=== PATIENT | male | born 1990 | race Caucasian/White ===

== ENCOUNTER 2020-02-19 00:34 | Emergency (ER) | payer BC ==
[2020-02-19] MEDS ORDERED: Alum Hydrox/Mag Hydrox/Simeth 30 ML, Lidocaine 2% 15 ML PO ONE ×2 (02:14)
--- NOTE | 2020-02-19 03:28 | EDM.PDOC ---
ED HPI GENERAL MEDICAL PROBLEM - General Chief Complaint: Abdominal Pain Stated Complaint: ABDOMINAL PAIN Time Seen by Provider: 02/19/20 00:36 Source of Information: Reports: Patient History Limitations: Reports: No Limitations - History of Present Illness INITIAL COMMENTS - FREE TEXT/NARRATIVE: TRIAGE NOTE -- PT STARTED having mid abdominal pain about 4 hours [employer] and radiated to his right mid back, denies vomiting and nausea. pt further stated he has umbilical hernia. [ End ] The patient is complaining of the epigastric pain. He says it started perhaps 4 hours prior to arrival. He says the pain then went to the upper abdomen on the right and then radiated to his back. He is a cigarette smoker. No other identified risk factors. There is no pain referable to the umbilical area. No fever respiratory symptoms or any other symptom of acute medical illness otherwise. Middle Abdomen Pain Score (Numeric/FACES): 3 - Related Data Allergies Allergy/AdvReac Type Severity Reaction Status Date / Time No Known Allergies Allergy Verified 02/19/20 00:46 Home Meds: Home Meds Multivitamin [Multi-Vitamin Daily] 1 tab PO DAILY 02/19/20 [History] Past Medical History - Past Health History Medical/Surgical History: Denies Medical/Surgical History - Past Surgical History GI Surgical History: Reports: Hernia, Abdominal Social & Family History - Family History Family Medical History: Noncontributory - Tobacco Use Smoking Status *Q: Current Every Day Smoker Years of Tobacco use: 10 Packs/Tins Daily: 0.5 Used Tobacco, but Quit: No - Caffeine Use Caffeine Use: Reports: Coffee, Tea - Recreational Drug Use Recreational Drug Use: No ED ROS GENERAL - Review of Systems Review Of Systems: Comprehensive ROS is negative, except as noted in HPI. ED EXAM, GI/ABD - Physical Exam Exam: See Below Exam Limited By: No Limitations General Appearance: Alert, WD/WN, No Apparent Distress Eyes: Bilateral: Abnormal EOM Ears: Normal External Exam Nose: Normal Inspection Throat/Mouth: Normal Inspection Head: Atraumatic, Normocephalic Neck: Supple, Non-Tender Respiratory/Chest: No Respiratory Distress, Lungs Clear, Normal Breath Sounds Cardiovascular: Regular Rate, Rhythm GI/Abdominal Exam: Soft, Tender (Very mild tenderness in epigastric and right upper quadrant.). No: Guarding, Rigid, Rebound Back Exam: Normal Inspection Extremities: Normal Inspection, Non-Tender Neurological: Alert, Oriented, Normal Cognition, No Motor/Sensory Deficits Psychiatric: Normal Affect Skin Exam: Warm, Dry Course - Vital Signs Last Recorded V/S: Last Vital Signs Temp 36.8 C 02/19/20 00:42 Pulse 65 02/19/20 00:42 Resp 20 02/19/20 00:42 BP 168/96 H 02/19/20 00:42 Pulse Ox 100 02/19/20 00:42 - Orders/Labs/Meds Labs: Laboratory Tests 02/19/20 02/19/20 02/19/20 Range/Units 01:15 01:15 02:05 WBC 6.44 (4.23-9.07) K/mm3 RBC 4.68 (4.63-6.08) M/mm3 Hgb 14.3 (13.7-17.5) gm/dl Hct 41.5 (40.1-51.0) % MCV 88.7 (79.0-92.2) fl MCH 30.6 (25.7-32.2) pg MCHC 34.5 (32.2-35.5) g/dl RDW Std Deviation 43.1 (35.1-43.9) fL Plt Count 295 (163-337) K/mm3 MPV 9.7 (9.4-12.3) fl Neutrophils % (Manual) 40 (40-60) % Band Neutrophils % 0 (0-10) % Lymphocytes % (Manual) 37 (20-40) % Atypical Lymphs % 0 % Monocytes % (Manual) 17 H (2-10) % Eosinophils % (Manual) 4 (0.8-7.0) % Basophils % (Manual) 2 H (0.2-1.2) Platelet Estimate Adequate Plt Morphology Comment Normal RBC Morph Comment Normal Sodium 138 (136-145) mEq/L Potassium 4.0 (3.5-5.1) mEq/L Chloride 101 (98-107) mEq/L Carbon Dioxide 29 (21-32) mEq/L Anion Gap 12.0 (5-15) BUN 16 (7-18) mg/dL Creatinine 1.2 (0.7-1.3) mg/dL Est Cr Clr Drug Dosing 104.15 mL/min Estimated GFR (MDRD) > 60 (>60) mL/min BUN/Creatinine Ratio 13.3 L (14-18) Glucose 97 (74-106) mg/dL Calcium 9.0 (8.5-10.1) mg/dL Total Bilirubin 0.6 (0.2-1.0) mg/dL AST 36 (15-37) U/L ALT 66 H (16-63) U/L Alkaline Phosphatase 79 (46-116) U/L Total Protein 7.0 (6.4-8.2) g/dl Albumin 3.9 (3.4-5.0) g/dl Globulin 3.1 gm/dL Albumin/Globulin Ratio 1.3 (1-2) Lipase 115 (73-393) U/L Urine Color Yellow (Yellow) Urine Appearance Clear (Clear) Urine pH 6.5 (5.0-8.0) Ur Specific [place] 1.025 (1.005-1.030) Urine Protein Negative (Negative) Urine Glucose (UA) Negative (Negative) Urine Ketones Negative (Negative) Urine Occult Blood Negative (Negative) Urine Nitrite Negative (Negative) Urine Bilirubin Negative (Negative) Urine Urobilinogen 0.2 (0.2-1.0) Ur Leukocyte Esterase Negative (Negative) Urine Opiates Screen (WPTEQP=257) Ur Buprenorphine Scrn (CUTOFF=10) Ur Oxycodone Screen (HHL7IK=091) Urine Methadone Screen (SWZ2LC=168) Ur Propoxyphene Screen (NRMHAJ=043) Ur Barbiturates Screen (OTUHFE=846) Ur Tricyclics Screen (DMDNDA=342) Ur Phencyclidine Scrn (CUTOFF=25) Ur Amphetamine Screen (OFZJQC=132) U Methamphetamines Scrn (DCRJMI=739) U Benzodiazepines Scrn (TIUHOZ=759) U Cocaine Metab Screen (RTJHAY=093) U Marijuana (THC) Screen (CUTOFF=50) 02/19/20 Range/Units 02:12 WBC (4.23-9.07) K/mm3 RBC (4.63-6.08) M/mm3 Hgb (13.7-17.5) gm/dl Hct (40.1-51.0) % MCV (79.0-92.2) fl MCH (25.7-32.2) pg MCHC (32.2-35.5) g/dl RDW Std Deviation (35.1-43.9) fL Plt Count (163-337) K/mm3 MPV (9.4-12.3) fl Neutrophils % (Manual) (40-60) % Band Neutrophils % (0-10) % Lymphocytes % (Manual) (20-40) % Atypical Lymphs % % Monocytes % (Manual) (2-10) % Eosinophils % (Manual) (0.8-7.0) % Basophils % (Manual) (0.2-1.2) Platelet Estimate Plt Morphology Comment RBC Morph Comment Sodium (136-145) mEq/L Potassium (3.5-5.1) mEq/L Chloride (98-107) mEq/L Carbon Dioxide (21-32) mEq/L Anion Gap (5-15) BUN (7-18) mg/dL Creatinine (0.7-1.3) mg/dL Est Cr Clr Drug Dosing mL/min Estimated GFR (MDRD) (>60) mL/min BUN/Creatinine Ratio (14-18) Glucose (74-106) mg/dL Calcium (8.5-10.1) mg/dL Total Bilirubin (0.2-1.0) mg/dL AST (15-37) U/L ALT (16-63) U/L Alkaline Phosphatase (46-116) U/L Total Protein (6.4-8.2) g/dl Albumin (3.4-5.0) g/dl Globulin gm/dL Albumin/Globulin Ratio (1-2) Lipase (73-393) U/L Urine Color (Yellow) Urine Appearance (Clear) Urine pH (5.0-8.0) Ur Specific [place] (1.005-1.030) Urine Protein (Negative) Urine Glucose (UA) (Negative) Urine Ketones (Negative) Urine Occult Blood (Negative) Urine Nitrite (Negative) Urine Bilirubin (Negative) Urine Urobilinogen (0.2-1.0) Ur Leukocyte Esterase (Negative) Urine Opiates Screen Negative (RTAYFL=628) Ur Buprenorphine Scrn Negative (CUTOFF=10) Ur Oxycodone Screen Negative (YQT9GN=561) Urine Methadone Screen Negative (VSN8LM=484) Ur Propoxyphene Screen Negative (DDZSXL=830) Ur Barbiturates Screen Negative (GMXPKJ=191) Ur Tricyclics Screen Negative (LKHTEE=076) Ur Phencyclidine Scrn Negative (CUTOFF=25) Ur Amphetamine Screen Negative (CRZQSM=030) U Methamphetamines Scrn Negative (WCPADX=932) U Benzodiazepines Scrn Negative (SZIPJJ=058) U Cocaine Metab Screen Negative (DCIKPO=791) U Marijuana (THC) Screen Negative (CUTOFF=50) Meds: Medications Discontinued Medications Generic Name Dose Route Start Last Admin Trade Name Ryann PRN Reason Stop Dose Admin Al Hydroxide/Mg Hydroxide 30 0 ml 02/19/20 02:14 02/19/20 02:23 ml/ Lidocaine HCl 15 ml PO 02/19/20 02:15 45 ml ONETIME ONE Administration - Re-Assessments/Exams Free Text/Narrative Re-Assessment/Exam: 02/19/20 03:24 The patient has had a fairly exhaustive evaluation without any salient abnormal findings. Presentation and exam are quite benign. See instructions to patient for further treatment and evaluation. It is noted that the patient did note some improvement with a GI cocktail. Departure - Departure Time of Disposition: 03:25 Disposition: Home, Self-Care 01 Condition: Good Clinical Impression: Peptic ulcer symptoms, Tobacco abuse counseling - Discharge Information *PRESCRIPTION DRUG MONITORING PROGRAM REVIEWED*: Not Applicable *COPY OF PRESCRIPTION DRUG MONITORING REPORT IN PATIENT SHAZIA: Not Applicable Referrals: PCP,None [Primary Care Provider] - Additional Instructions: You have been evaluated for abdominal discomfort. This is consistent with possible peptic ulcer pain. It is suggested that you buy [id number] Prilosec or similar medication and use it in therapeutic strength which would be essentially 2 pills/day. Report this visit to your primary care physician. If symptoms persist you might be referred to gastroenterology for endoscopic evaluation. You are urged to stop smoking. Cigarette smoking is highly correlated with and produces ulcer symptoms as well as ulcers and inflammation and degradation of the esophagus. Do not hesitate to return to the emergency department for any increased pain, fever, nausea and vomiting, or any other symptom of acute medical illness. Sepsis Event Note - Evaluation Sepsis Screening Result: No Definite Risk - Focused Exam Vital Signs: Vital Signs Temp Pulse Resp BP Pulse Ox 02/19/20 00:42 36.8 C 65 20 168/96 H 100 Date Exam was Performed: 02/19/20 Time Exam was Performed: 03:21
== END 2020-02-19 03:40 | disposition home or self-care (01) ==
LOC: JD.ED 00:34
DX: R10.13 Epigastric pain (principal); R10.11 Right upper quadrant pain; F17.210 Nicotine dependence, cigarettes, uncomplicated; Z71.6 Tobacco abuse counseling
CPT/HCPCS: 36415; 80053; 80306; 81003; 83690; 85007; 85027; 99284; A9270; 99282

== ENCOUNTER 2021-05-09 18:55 | Emergency (ER) | payer BC, OTHER ==
--- NOTE | 2021-05-09 19:31 | EDM.PDOC ---
ED HPI GENERAL MEDICAL PROBLEM - General Chief Complaint: Lower Extremity Injury/Pain Stated Complaint: ROLLED RIGHT ANKLE AT WORK Time Seen by Provider: 05/09/21 19:08 Source of Information: Reports: Patient, Family () History Limitations: Reports: No Limitations - History of Present Illness INITIAL COMMENTS - FREE TEXT/NARRATIVE: Mr. Nichols is a very pleasant 30-year-old gentleman who now presents to the ED after inverting his right foot, followed by being struck on his medial distal right leg by a pipe, while at work, around 15:30 to 16:00 yesterday afternoon. He states that there was only mild pain initially, but that the pain has significantly increased since then. He states that he iced his leg and ankle last night and again today. He took 400 mg of ibuprofen yesterday, then 200 mg every 4 hours since. The patient states that he believes he broke his right leg when he was 10 years old. It required casting, but not surgery. Here in the ED, the patient's initial BP is found to be mildly elevated at 141/80, otherwise, he is hemodynamically stable, afebrile, saturating 98% on room air. He is relatively comfortable with his right leg propped up on a pillow, in no acute distress. Prior to yesterday afternoon, the patient denies having a recent fever, chills, sore throat, ear pain, nasal or sinus congestion, cough, dyspnea, chest pain, palpitations, nausea, vomiting, constipation, diarrhea, abdominal pain, urinary symptoms, recent weight gain or weight loss, recent bloody bowel movements or black bowel movements, recent joint aches, headaches, or rashes. The patient's PCP is Carmenza Rodriguez NP. He has not received a COVID vaccination. 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 Right Lower Feet Pain Score (Numeric/FACES): 7 - Related Data Allergies Allergy/AdvReac Type Severity Reaction Status Date / Time No Known Allergies Allergy Verified 02/19/20 00:46 Home Meds: Home Meds Lisdexamfetamine Dimesylate [Vyvanse] 40 mg PO DAILY 05/09/21 [History] Past Medical History Psychiatric History: Reports: ADHD - Infectious Disease History Infectious Disease History: Reports: Chicken Pox Social & Family History - Tobacco Use Tobacco Use Status *Q: Current Every Day Tobacco User Years of Tobacco use: 16 Packs/Tins Daily: 1 Tobacco Use Comment: Started smoking 2004 - Caffeine Use Caffeine Use: Reports: Coffee, Energy Drinks, Soda, Tea - Alcohol Use Alcohol Use History: Yes Alcohol Use Frequency: Binges (8 beers 3-4 times a week) - Recreational Drug Use Recreational Drug Use: Yes Drug Use in Last 12 Months: Yes Recreational Drug Type: Reports: Cocaine (last snorted February 2021), Marijuana/Hashish (last smoked in ) - Living Situation & Occupation Living situation: Reports: , with Spouse, with Family (3 kids) 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 ED EXAM, GENERAL - Physical Exam Exam: See Below Exam Limited By: No Limitations General Appearance: Alert, WD/WN, No Apparent Distress Extremities: Other (There is ecchymosis to the distal medial right leg, as well as some extravasated blood to the medial foot. There is generalized swelling to the right ankle, with tenderness around the medial malleolus, but minimal tenderness to the anterior or posterior syndesmosis or lateral malleolus. Minim eusebia alexander) Course - Vital Signs Last Recorded V/S: Last Vital Signs Temp 36.9 C 05/09/21 19:15 Pulse 61 05/09/21 19:15 Resp 20 05/09/21 19:15 BP 141/80 H 05/09/21 19:15 Pulse Ox 98 05/09/21 19:15 - Orders/Labs/Meds Orders: Active Orders 24 hr Category Date Time Status Ankle Min 3V Rt [CR] Stat Exams 05/09/21 19:27 Taken DME for Discharge [COMM] Stat Oth 05/09/21 21:03 Ordered DME for Discharge [COMM] Stat Oth 05/09/21 21:26 Ordered - Re-Assessments/Exams Free Text/Narrative Re-Assessment/Exam: 05/09/21 19:28 As above, the patient rolled his right foot medially yesterday, then the medial aspect of his distal right leg was struck by a pipe. He had minimal pain initially, but the pain has increased significantly since. He has ecchymosis to the medial distal leg, with some extravasation of blood to the medial foot. He is primarily tender around the medial malleolus, with minimal tenderness, if any, to the lateral malleolus, anterior syndesmosis, or posterior syndesmosis. No significant pain to PROM of the right ankle. The foot itself appears to be uninjured. Distal pulses equivalent to the left. I have ordered x-rays of the right ankle to evaluate. 05/09/21 21:02 4-view radiographs of the right ankle appear to be grossly normal, with no fracture or dislocation identified. Formal read per the Radiologist pending. 05/09/21 21:11 X-ray results discussed with the patient and his . The patient appears to have sprained his right ankle. Accordingly, I have ordered an Aircast to be applied. If the patient has significant difficulty ambulating with the Aircast, I can order some crutches. I would like him to ice and elevate his right lower extremity as much as possible over the next few days. I offered to prescribe an opioid pain reliever, but he would prefer to stay with ibuprofen. I would like him to wear the Aircast for 1 week, then come out of it. He should expect to have some discomfort at that time, but if he continues to have discomfort after 2 weeks, I would like him to follow-up with Dr. Sullivan. I will provide him with a note to return to work with restrictions. Departure - Departure Time of Disposition: 21:16 Disposition: Home, Self-Care 01 Condition: Good Clinical Impression: Right ankle sprain, Contusion of right leg - Discharge Information *PRESCRIPTION DRUG MONITORING PROGRAM REVIEWED*: Not Applicable *COPY OF PRESCRIPTION DRUG MONITORING REPORT IN PATIENT SHAZIA: Not Applicable Instructions: Ankle Sprain, [id number], Contusion, [id number] Referrals: Carmenza Rodriguez NP [Primary Care Provider] - Forms: ED Department Discharge, ED Return to Work/School Form Additional Instructions: You were seen in the emergency room after rolling her right ankle inward and being struck by a pipe while at work yesterday afternoon. Work-up in the ER included x-rays of your right ankle, which showed no broken bones or dislocations. Based on your history, physical exam, and ER x-rays, you have sprained your right ankle, and have a contusion (bruise) to your right leg. We recommend that you ice and elevate your right ankle as much as possible over the next 2 to 3 days, to help minimize swelling. We recommend you take [id number] ibuprofen, 3 tablets (600 mg) up to every 8 hours, with food, as needed for discomfort. You have been fitted with an Aircast. Put this on every morning, and remove it at bedtime. It will limit the motion of your ankle when you walk. You have been provided with a note to return to work with restrictions. We recommend that you wear the Aircast for about 1 week, after which you should come out of it. At that time, you should expect to have some discomfort with walking, however, if you continue to have discomfort after 2 weeks, please follow-up with the orthopedic surgeon Dr. Paulino Sullivan. If any other problems, please do not hesitate to return to the ER. Sepsis Event Note (ED) - Focused Exam Vital Signs: Vital Signs Temp Pulse Resp BP Pulse Ox 05/09/21 19:15 36.9 C 61 20 141/80 H 98 - My Orders Last 24 Hours: My Active Orders 05/09/21 19:27 Ankle Min 3V Rt [CR] Stat 05/09/21 21:03 DME for Discharge [COMM] Stat 05/09/21 21:26 DME for Discharge [COMM] Stat - Assessment/Plan Last 24 Hours: My Active Orders 05/09/21 19:27 Ankle Min 3V Rt [CR] Stat 05/09/21 21:03 DME for Discharge [COMM] Stat 05/09/21 21:26 DME for Discharge [COMM] Stat
--- NOTE | 2021-05-10 09:39 | CR ---
Right ankle: 4 views of the right ankle were obtained. Comparison: No previous ankle study is available. Soft tissue swelling is identified. Ankle mortise is symmetric. No acute fracture, dislocation or other bony abnormality is appreciated. Impression: 1. Soft tissue swelling. 2. No acute osseous abnormality is appreciated. Diagnostic code #2
== END 2021-05-09 21:36 | disposition home or self-care (01) ==
LOC: JD.ED 18:55
DX: S93.401A Sprain of unspecified ligament of right ankle, initial encounter (principal); W22.09XA Striking against other stationary object, initial encounter; Y99.0 Civilian activity done for income or pay
CPT/HCPCS: 73610-26-RT; 73610-RT; 99282; 99283-25

== ENCOUNTER 2022-01-09 17:00 | Emergency (ER) | payer BC | END 2022-01-09 17:54 | disposition home or self-care (01) | LOC: JD.ED 17:00 | DX: K08.89 Other specified disorders of teeth and supporting structures (principal); Z79.899 Other long term (current) drug therapy | CPT/HCPCS: 99282; 99283 ==

== ENCOUNTER 2025-07-03 20:13 | Emergency (ER) | payer OTHER, MEDICAID ==
[2025-07-03] MEDS: LORazepam 2 MG/ML SDV IM ONE (20:26)
[2025-07-03 20:51] LABS: BASOPHILS ABSOLUTE AUTO 0.1 K/mm3 (0.0-0.2); BASOPHILS PERCENT AUTO 1.1 % (0.0-1.0); EOSINOPHILS ABSOLUTE AUTO 0.8 K/mm3 (0.0-0.4); EOSINOPHILS PERCENT AUTO 7.0 % (0.0-6.0); IMMATURE GRAN ABSOLUTE AUTO 0.04 K/mm3 (0.00-0.05); IMMATURE GRAN PERCENT AUTO 0.4 % (0.0-0.4); LYMPHOCYTES ABSOLUTE AUTO 4.0 K/mm3 (1.0-4.8); LYMPHOCYTES PERCENT AUTO 37.5 % (24.0-44.0); MEAN PLATELET VOLUME 9.9 fl (9.4-12.4); MONOCYTES ABSOLUTE AUTO 1.2 K/mm3 (0.0-0.8); MONOCYTES PERCENT AUTO 11.2 % (0.0-8.0); NEUTROPHILS ABSOLUTE AUTO 4.6 K/mm3 (1.8-7.7); NEUTROPHILS PERCENT AUTO 42.8 % (41.0-71.0); NRBC ABSOLUTE 0.00 (0.00-0.02); NRBC PERCENT 0.0 % (0.0-0.2); PLATELET COUNT,PLT 321 K/mm3 (150-400); RED BLOOD CELL COUNT 5.47 M/mm3 (4.52-5.90); WHITE BLOOD CELL COUNT,WBC 10.74 K/mm3 (3.9-11.3)
[2025-07-03 21:08] LABS: INR 1.06
[2025-07-03 21:12] LABS: A/G RATIO 1.3 (1-2); ALANINE AMINOTRANSFERASE,ALT 85 U/L (16-63); ASPARTATE AMNIOTRANSFERASE,AST 44 U/L (15-37); BILIRUBIN TOTAL 0.5 mg/dL (0.2-1.0); BLOOD UREA NITROGEN,BUN 15 mg/dL (7-18); CARBON DIOXIDE,CO2 24 mEq/L (21-32); CHLORIDE,CL 101 mEq/L (98-107); CREATININE 1.2 mg/dL (0.7-1.3); ESTIMATED GFR 80 mL/min (>60); ETHANOL BLOOD MEDICAL 0.25 gm% (0.00); GLUCOSE RANDOM 102 mg/dL (70-99); POTASSIUM,K 3.9 mEq/L (3.5-5.1); PROTEIN TOTAL,TP 7.6 g/dl (6.4-8.2); SODIUM,NA 140 mEq/L (136-145)
[2025-07-03 21:49] LABS: APPEARANCE,URINE CLEAR (Clear); GLUCOSE,URINE NEGATIVE (Negative); OCCULT BLOOD,URINE 1+ (Negative)
[2025-07-03 21:59] LABS: BUPRENORPHINE SCREEN,URINE NEGATIVE (CUTOFF=10); METHADONE SCREEN, URINE NEGATIVE (CUT0FF=200); METHAMPHETAMINES SCREEN, URINE NEGATIVE (CUTOFF=500); OXYCODONE SCREEN,URINE NEGATIVE (CUT0FF=100); THC SCREEN,URINE 20 NG/ML NEGATIVE (CUTOFF=50)
[2025-07-03 22:00] LABS: AMPHETAMINES SCREEN, URINE NEGATIVE (CUTOFF=500)
[2025-07-03 22:16] LABS: EPITHELIAL CELLS,URINE 0-5 /hpf (0-5)
== END 2025-07-03 23:55 | disposition home or self-care (01) ==
LOC: JD.ED 20:13
DX: Z02.89 Encounter for other administrative examinations (principal); V89.2XXA Person injured in unspecified motor-vehicle accident, traffic, initial encounter
CPT/HCPCS: 36415; 70450; 72125; 80053; 80306; 80307; 81001; 85025; 85610; 96372; 99284; J2060; J2359; 99283